=== PATIENT | male | born 1975 | race Two or more races ===

== ENCOUNTER 2022-07-12 17:40 | Inpatient (IN) | payer OTHER ==
[~2022-07-12] VITALS: Ht 175.3 cm; Wt 90.7 kg
--- NOTE | 2022-07-12 18:02 | NUR ---
LLEGA EN [facility]IA [facility], DESPIERTO RACQUEL NO RESPONDE A NINGUNA PREGUNTA, REFIEREN QUE LOBATO MADRE LO ENCONTRO BAJO ESTADO DE LUCILA SOBREDOSIS, AL MOMENTO NO JOHNSON SIDO OLAMIDE LA INFORMACION QUE SE PUDO COLECTAR. YA QUE NO COOPERA. PENDIENTE EVALUACION INICIAL.
--- NOTE | 2022-07-12 18:51 | NUR ---
PACIENTE SE LE REALIZA CATATERIZACION PARA DRUGSCREENG MUESTRAS DE LORI Y ADMINISTRACION DE MEDICAMENTOS.
--- NOTE | 2022-07-12 19:39 | NUR ---
SE ADMINISTRAN 2 HIPERTONICAS A PACIENTE VALOR PANICO 32 DE AZUCAR.
--- NOTE | 2022-07-12 22:09 | NUR ---
SE INERTA ELIAS,SE ADMINISTRAN MEDICAMENTOS Y SE COLOCA NASAL @ 3LTS POR ORDENES DE DR LEDESMA.
== END 2022-08-13 12:35 | disposition home or self-care (01) | DRG 917 ==
LOC: ER 17:40 → SEC-K 23:41 → SURH 23:41 → MEDJ 07-13 03:12 → SEC-K 07-13 06:19 → SURH 07-13 10:36
PROVIDERS: Surgery; ADMIT Internal Medicine; ATTEND Internal Medicine
PROC: BW21ZZZ Computerized Tomography (CT Scan) of Abdomen and Pelvis (ICD-10-PCS; 2022-07-12)
PROC: BW28ZZZ Computerized Tomography (CT Scan) of Head (ICD-10-PCS; 2022-07-12)
PROC: B24BZZZ Ultrasonography of Heart with Aorta (ICD-10-PCS; 2022-07-13)
PROC: 4A12X4Z Monitoring of Cardiac Electrical Activity, External Approach (ICD-10-PCS; 2022-07-14)
PROC: 5A1D70Z Performance of Urinary Filtration, Intermittent, Less than 6 Hours Per Day (ICD-10-PCS; 2022-07-15)
PROC: 05HM33Z Insertion of Infusion Device into Right Internal Jugular Vein, Percutaneous Approach (ICD-10-PCS; principal; 2022-07-15 10:30)
PROC: 5A1D70Z Performance of Urinary Filtration, Intermittent, Less than 6 Hours Per Day (ICD-10-PCS; 2022-07-16)
PROC: 5A1D70Z Performance of Urinary Filtration, Intermittent, Less than 6 Hours Per Day (ICD-10-PCS; 2022-07-18)
PROC: 02HV33Z Insertion of Infusion Device into Superior Vena Cava, Percutaneous Approach (ICD-10-PCS; 2022-07-19)
PROC: 5A1D70Z Performance of Urinary Filtration, Intermittent, Less than 6 Hours Per Day (ICD-10-PCS; 2022-07-19)
PROC: 5A1D70Z Performance of Urinary Filtration, Intermittent, Less than 6 Hours Per Day (ICD-10-PCS; 2022-07-20)
PROC: 5A1D70Z Performance of Urinary Filtration, Intermittent, Less than 6 Hours Per Day (ICD-10-PCS; 2022-07-22)
PROC: 30233N1 Transfusion of Nonautologous Red Blood Cells into Peripheral Vein, Percutaneous Approach (ICD-10-PCS; 2022-07-24)
PROC: 5A1D70Z Performance of Urinary Filtration, Intermittent, Less than 6 Hours Per Day (ICD-10-PCS; 2022-07-24)
PROC: B54DZZZ Ultrasonography of Bilateral Lower Extremity Veins (ICD-10-PCS; 2022-07-27)
PROC: 5A1D70Z Performance of Urinary Filtration, Intermittent, Less than 6 Hours Per Day (ICD-10-PCS; 2022-07-27)
PROC: BR29ZZZ Computerized Tomography (CT Scan) of Lumbar Spine (ICD-10-PCS; 2022-07-28)
PROC: 5A1D70Z Performance of Urinary Filtration, Intermittent, Less than 6 Hours Per Day (ICD-10-PCS; 2022-07-28)
PROC: 5A1D70Z Performance of Urinary Filtration, Intermittent, Less than 6 Hours Per Day (ICD-10-PCS; 2022-07-29)
PROC: 5A1D70Z Performance of Urinary Filtration, Intermittent, Less than 6 Hours Per Day (ICD-10-PCS; 2022-07-31)
PROC: BR3 Imaging, Axial Skeleton, Except Skull and Facial Bones, Magnetic Resonance Imaging (MRI) (ICD-10-PCS; 2022-08-06)
DX: T40.1X1A Poisoning by heroin, accidental (unintentional), initial encounter (principal); A41.9 Sepsis, unspecified organism; I21.A1 Myocardial infarction type 2; N17.0 Acute kidney failure with tubular necrosis; M62.82 Rhabdomyolysis; E87.20 Acidosis, unspecified; N39.0 Urinary tract infection, site not specified; F14.13 Cocaine abuse, unspecified with withdrawal; N28.0 Ischemia and infarction of kidney; G82.20 Paraplegia, unspecified; T40.711A Poisoning by cannabis, accidental (unintentional), initial encounter; T40.5X1A Poisoning by cocaine, accidental (unintentional), initial encounter; M51.36 Other intervertebral disc degeneration, lumbar region; E86.0 Dehydration; E16.1 Other hypoglycemia; E87.5 Hyperkalemia; I13.10 Hypertensive heart and chronic kidney disease without heart failure, with stage 1 through stage 4 chronic kidney disease, or unspecified chronic kidney disease; N18.9 Chronic kidney disease, unspecified; Z20.822 Contact with and (suspected) exposure to COVID-19
CPT/HCPCS: 72147; 72149